=== PATIENT | female | born 1990 | race Caucasian/White ===

== ENCOUNTER 2019-01-15 20:04 | Emergency (ER) | payer SELFPAY ==
[2019-01-15] MEDS ORDERED: ATIVAN IM ONE (20:21)
[2019-01-15] MEDS ORDERED: HALDOL IM ONE (20:21)
[2019-01-15] MEDS ORDERED: HALDOL ONE (20:24)
[2019-01-15] MEDS ORDERED: ATIVAN ONE (20:24)
--- NOTE | 2019-01-15 20:43 | Emergency Department Report ---
HPI - General Chief Complaint: Altered Mental Status Time Seen by Provider: 01/15/19 20:21 - HPI HPI: 28-year-old female presents to the emergency department by EMS from home after her boyfriend apparently called secondary to some abnormal and erratic behavior that has allegedly been going on for the past 24 hours. The patient does appear combative and aggressive. She is awake but she is cursing and yelling. Patient does appear to be confused or delusional as well. I introduced myself as the ER physician and the patient says "I know you, I one $100 from you" and then proceeds to continue cursing at ER staff. The patient has never been at our facility before and therefore, given her current condition, she is a poor historian. She did not receive anything for her symptoms in route. ED Past Medical Hx - Past Medical History Previous Medical History?: No - Surgical History Past Surgical History?: No - Social History Smoking Status: Unknown if ever smoked ED Review of Systems ROS: Stated complaint: AMS Other details as noted in HPI Comment: Unobtainable due to pts medical conditions Physical Exam - Physical Exam Vital Signs: Vital Signs 01/15/19 20:08 Temperature 98.5 F Pulse Rate 108 H Respiratory 22 Rate Blood Pressure 125/84 O2 Sat by Pulse 96 Oximetry Physical Exam: GENERAL: The patient is well-developed well-nourished. HENT: Normocephalic. Atraumatic. Patient has moist mucous membranes. EYES: Extraocular motions are intact. NECK: Supple. Trachea is midline. CHEST/LUNGS: Clear to auscultation. There is no respiratory distress noted. HEART/CARDIOVASCULAR: Regular. There is no tachycardia. There is no murmur. ABDOMEN: Abdomen is soft, nontender. Patient has normal bowel sounds. There is no abdominal distention. SKIN: Skin is warm and dry. NEURO: The patient is awake but uncooperative. Patient is currently yelling at ER staff and is not directable. MUSCULOSKELETAL: There is no tenderness or deformity. There is no limitation range of motion. There is no evidence of acute injury. PSYCH: Patient is agitated with some possible delusions. ED Course Vital Signs 01/15/19 20:08 Temperature 98.5 F Pulse Rate 108 H Respiratory 22 Rate Blood Pressure 125/84 O2 Sat by Pulse 96 Oximetry ED Medical Decision Making - Lab Data Result diagrams: 01/15/19 20:32 01/15/19 20:32 - Radiology Data Radiology results: report reviewed CT head/brain wo con INDICATION / CLINICAL INFORMATION: AMS. TECHNIQUE: Axial CT imaging of brain was obtained without contrast. Coronal and sagittal reformatted imaging obtained and reviewed. All CT scans at this location are performed using CT dose reduction for ALARA by means of automated exposure control. COMPARISON: None available. FINDINGS: No intracranial hemorrhage, mass, or midline shift is identified. No extra-axial fluid collection or suggestion of acute territorial infarct. Ventricular system and basilar cisterns are unremarkable. Visualized paranasal sinuses and mastoid air cells are grossly well aerated and clear. No calvarial abnormality. IMPRESSION: 1. Negative noncontrasted head CT scan. - Medical Decision Making This patient initially was brought in by EMS from home for some erratic behavior witnessed over the past 24 hours by her boyfriend. However there is no one at bedside so all information is through EMS. However the patient does appear ag itated, erratic and appears altered with some delusions. She is yelling and cursing and ER staff. Patient was given a dose of Haldol and Ativan to treat her psychosis and was reevaluated and showed some improvement. After this, the patient became calm and cooperative and we were able to complete her medical clearance workup. She had a CT scan of the head without contrast that does not show any bleed, shift, mass, ischemia, or any other acute process. The patient's labs were mostly unremarkable except for some hypokalemia with potassium of 3.1 that was replaced with potassium chloride, and a urine drug screen showing positive amphetamines. Given this information, it is very possible that the patient has meth-induced psychosis, but I cannot rule out some type of organic psychiatric condition. Nonetheless, the patient is a 1013 and will be seen by the psychiatric tool setter apprentice. Her vital signs are stable throughout her ED course. The patient appears medically cleared for psychiatric placement. - Differential Diagnosis substance induced psychosis, schizophrenia, bipolar disorder Critical Care Time: No Critical care attestation.: If time is entered above; I have spent that time in minutes in the direct care of this critically ill patient, excluding procedure time. ED Disposition Clinical Impression: Amphetamine abuse, Acute psychosis Disposition: DC/TX-65 PSY HOSP/PSY UNIT Is pt being admited?: No Condition: Stable Time of Disposition: 22:45
[2019-01-15 20:45] LABS: Basophils # (Auto) 0.1 K/mm3 (0.0-0.1); Basophils % (Auto) 0.9 % (0.0-1.8); Eosinophils # (Auto) 0.1 K/mm3 (0.0-0.4); Eosinophils % (Auto) 1.2 % (0.0-4.3); Hematocrit 39.3 % (30.3-42.9); Hemoglobin 13.1 gm/dl (10.1-14.3); Lymphocytes # (Auto) 1.4 K/mm3 (1.2-5.4); Lymphocytes % (Auto) 18.1 % (13.4-35.0); Mean Corpuscular HGB Conc 33 % (30-34); Mean Corpuscular Volume 80 fl (79-97); Monocytes # (Auto) 0.6 K/mm3 (0.0-0.8); Monocytes % (Auto) 7.9 % (0.0-7.3); Platelet Count 283 K/mm3 (140-440); Red Cell Distribution Width 13.3 % (13.2-15.2)
[2019-01-15 21:06] LABS: Alanine Aminotransferase 14 units/L (7-56); Albumin 5.2 g/dL (3.9-5); BUN/Creatinine Ratio 15; Blood Urea Nitrogen 9 mg/dL (7-17); Calcium 9.4 mg/dL (8.4-10.2); Hemolysis Index 3
[2019-01-15] MEDS ORDERED: K-DUR PO ONE (21:30)
--- NOTE | 2019-01-15 21:31 | Cat Scan Report ---
CT head/brain wo con INDICATION / CLINICAL INFORMATION: AMS. TECHNIQUE: Axial CT imaging of brain was obtained without contrast. Coronal and sagittal reformatted imaging obt ained and reviewed. All CT scans at this location are performed using CT dose reduction for ALARA by means of automated exposure control. COMPARISON: None available. FINDINGS: No intracranial hemorrhage, mass, or midline shift is identified. No extra-axial fluid collection or suggestion of acute territorial infarct. Ventricular system and basilar cisterns are unremarkable. Visualized paranasal sinuses and mastoid air cells are grossly well aerated and clear. No calvarial a bnormality. IMPRESSION: 1. Negative noncontrasted head CT scan. Signer Name: No White MD Signed: 01/15/2019 9:26 PM Workstation Name: [id number]
[2019-01-15 21:54] LABS: Bilirubin,Urine NEG (Negative); Blood,Urine NEG (Negative); Color,Urine Yellow (Yellow); Mucus,Urine 3+ /HPF; Urobilinogen,Urine < 2.0 mg/dL (<2.0)
[2019-01-15 22:09] LABS: Benzodiazepines Screen,Urine PRESUMPTIVE NEGATIVE; Cannabinoid Screen,Urine PRESUMPTIVE NEGATIVE; Cocaine Screen,Urine PRESUMPTIVE NEGATIVE; Methadone Screen,Urine PRESUMPTIVE NEGATIVE; Opiate Screen,Urine PRESUMPTIVE NEGATIVE
[2019-01-15 22:28] LABS: Amphetamine Screen,Urine PRESUMPTIVE POSITIVE
--- NOTE | 2019-01-16 09:23 | Consultation ---
History of Present Illness - Reason for Consult Consult date: 01/16/19 Reason for consult: Mental Health Evaluation Requesting physician: WANG ONEILL - Chief Complaint Chief complaint: "The patient will not talk" - History of Present Psychiatric Illness 28-year-old female presented to the ER for behavior behavior. Today the patient was calm, but refused to talk during the assessment. Several attempts was made to engage the patient, but was unsuccessful. Medications and Allergies Allergies Allergy/AdvReac Type Severity Reaction Status Date / Time Unable to Assess Allergy Unverified 01/15/19 20:12 Home Medications Medication Instructions Recorded Confirmed Last Taken Type Unobtainable 01/16/19 01/16/19 Unknown History Past psychiatric history - Past Medical History Past Medical History: other (Unable to obtain ) Past Surgical History: Other (Unable to obtain ) - past Psychiatric treatment and history psychiatric treatment history: Unable to obtain a psy hx and fam psy hx. - Social History Social history: other (Unable to obtain ) Mental Status Exam - Vital signs Last Vital Signs Temp 98.7 F 01/16/19 07:00 Pulse 94 H 01/16/19 07:00 Resp 18 01/16/19 07:00 BP 101/70 01/16/19 07:00 Pulse Ox 99 01/16/19 07:00 - Exam Narrative exam: Unable to complete the MSE because of the patient's condition. Results Result Diagrams: 01/15/19 20:32 01/15/19 20:32 Abnormal lab results 01/15/19 01/15/19 01/15/19 Range/Units 20:32 20:32 20:32 MCH 27 L (28-32) pg [place] % (Auto) 7.9 H (0.0-7.3) % Seg Neutrophils % 71.9 H (40.0-70.0) % Potassium 3.1 L (3.6-5.0) mmol/L Creatinine 0.6 L (0.7-1.2) mg/dL Total Protein 8.4 H (6.3-8.2) g/dL Albumin 5.2 H (3.9-5) g/dL Urine WBC (Auto) (0.0-6.0) /HPF Salicylates < 0.3 L (2.8-20.0) mg/dL Acetaminophen (10.0-30.0) ug/mL 01/15/19 01/15/19 Range/Units 20:32 Unknown MCH (28-32) pg [place] % (Auto) (0.0-7.3) % Seg Neutrophils % (40.0-70.0) % Potassium (3.6-5.0) mmol/L Creatinine (0.7-1.2) mg/dL Total Protein (6.3-8.2) g/dL Albumin (3.9-5) g/dL Urine WBC (Auto) 7.0 H (0.0-6.0) /HPF Salicylates (2.8-20.0) mg/dL Acetaminophen < 5.0 L (10.0-30.0) ug/mL All other labs normal. Assessment and Plan Assessment and plan: Impression: The patient was refused to talk during the assessment. The patient was positive for amphetamines. Recommendation/Plan: Will attempt to reassess the patient in 24 [address] Will staff with Dr Obed Yung.
--- NOTE | 2019-01-17 13:44 | Progress Note ---
Subjective - Reason for Consult Consult date: 01/17/19 Reason for consult: Psychiatry Follow-up - Chief Complaint Chief complaint: "I don't know what happened" 28-year-old female presented to the ER for bizarre behavior. Today the patient was calm, but somewhat guarded during the assessment. She stated that she do not know how she got to the ER. She acknowledged that she ingested "amphetamines" prior to coming to the ER. She stated she has a hx of amphetamine use. She was asked about her mental health overall, her answers were vague. She did state that she reside with her boyfriend. She denies SI/HI's and VH's. She asked about hearing voices, she would not answer the question. Mental Status Exam - Vital signs Last Vital Signs Temp 98.4 F 01/17/19 07:00 Pulse 76 01/17/19 07:00 Resp 18 01/17/19 07:00 BP 99/65 01/17/19 07:00 Pulse Ox 94 01/17/19 07:00 - Exam Narrative exam: MSE: Appearance: calm Behavior: regular eye contact Speech: regular rate and tone Mood: "okay" Affect: flat Thought Process: circumstantial Thought Content: denies SI/HI's and AVH's Motor Activity: ambulatory Cognition: A/O x3 Insight: variable Judgment: variable Assessment and Plan Impression: Unspecified Psychosis. Substance Use DO (amphetamines). Today the p atient was calm during the assessment. DDx: Substance Induced Psychosis Recommendation/Plan: Reevaluate the patient's 1013 in 24 hours and gather collateral information. Dispo: Once collateral information is obtain and the patient is reassess in 24 hours, proper dispo will be determined Staffed with Dr Obed Yung.
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
--- NOTE | 2019-01-19 09:33 | Progress Note ---
Subjective - Reason for Consult Consult date: 01/19/19 Reason for consult: Psychiatry Follow-up - Chief Complaint Chief complaint: "I'm do hear something" Patient is a 28-year-old female presented to the ER for bizarre behavior. Today the patient is calm, but somewhat disorganized during the assessment. She continue to guarded when asked certain questions about her mental health. She was forth coming about trying to hurt herself by choking on "fluids" prior to coming to the ER. She would not confirm or deny AH's. The patient appears to be responding to some type of stimuli. She denies SI/HI's and AVH's. Collateral information could not obtained at this time per a previous note (01/18/2019). Mental Status Exam - Vital signs Last Vital Signs Temp 98.4 F 01/19/19 07:28 Pulse 81 01/19/19 07:28 Resp 18 01/19/19 07:28 BP 90/62 01/19/19 07:28 Pulse Ox 100 01/19/19 01:08 - Exam Narrative exam: MSE: Appearance: calm Behavior: regular eye contact Speech: regular rate and tone Mood: guarded Affect: flat Thought Process: somewhat disorganized Thought Content: denies SI/HI's and VH's, responding to some type of stimuli Motor Activity: ambulatory Cognition: A/O x3 Insight: variable Judgment: variable Assessment and Plan Impression: Unspecified Psychosis. Substance Use DO (amphetamines). Today the patient was calm during the assessment. DDx: Bipolar DO with psychosis, Substance Induced Psychosis Recommendation/Plan: Continue 1013 and start Geodon 20 mg PO BID for mood/psychosis and Cogentin 0.5 mg Po BID for EPS prevention. Discussed possinle metabolic side effects with the patient reference Geodon, she verbalized understanding. Baseline Lipis panel /A1c ordered for the AM. Dispo: The patient was referred to inpatient psy services. Will staff with Dr Obed Yung.
[2019-01-19] MEDS: GEODON PO SCH ×2 (12:28→21:58)
[2019-01-19] MEDS: COGENTIN PO SCH ×2 (12:28→21:58)
[2019-01-20 07:28] LABS: Chol/HDL Ratio 2.97 %
[2019-01-20] MEDS: COGENTIN PO SCH ×2 (09:49→22:05)
[2019-01-20] MEDS: GEODON PO SCH ×2 (09:51→22:05)
--- NOTE | 2019-01-20 15:00 | Progress Note ---
Subjective - Reason for Consult Consult date: 01/20/19 Reason for consult: Psychiatry Follow-up - Chief Complaint Chief complaint: "I don't need to shower" Patient is a 28-year-old female presented to the ER for bizarre behavior. Today the patient is calm, but still disorganized during the assessment. Per collateral information from the patient's boyfriend Victorino Brady at [phone]. He stated that the patient was "bizarre" prior to her arrival to the ER. He stated that he isn't aware of the patient's overall mental health when asked. Throughout the interview, the patient was staring with a regular blank rate. She denies SI/HI's and VH's. She would not confirm or deny AH's. No indications of side effects from his medications. Mental Status Exam - Vital signs Last Vital Signs Temp 98.6 F 01/20/19 14:51 Pulse 96 H 01/20/19 14:51 Resp 16 01/20/19 14:51 BP 78/51 01/20/19 14:51 Pulse Ox 102 H 01/20/19 14:51 - Exam Narrative exam: MSE: Appearance: calm Behavior: regular eye contact Speech: regular rate and tone Mood: guarded Affect: flat Thought Process: still disorganized Thought Content: denies SI/HI's and VH's, still responding to some type of stimuli Motor Activity: ambulatory Cognition: A/O x3 Insight: limitd to variable Judgment: variable Assessment and Plan Impression: Unspecified Psychosis. Substance Use DO (amphetamines). Today the patient was calm, but still disorganized during the assessment. DDx: Bipolar DO with psychosis, Substance Induced Psychosis Recommendation/Plan: Continue 1013, Geodon 20 mg PO BID for mood/psychosis, and Cogentin 0.5 mg Po BID for EPS prevention. Discussed possinle metabolic side effects with the patient reference Miguel, she verbalized understanding. Dispo: The patient was accepted at [facility] for inpatient psy services pending transport time. Staff edwith Dr Obed Yung.
[2019-01-21 09:45] VITALS: BP 90/59
[2019-01-21] MEDS: COGENTIN PO SCH (10:00)
[2019-01-21] MEDS: GEODON PO SCH (10:00)
== END 2019-01-21 12:57 ==
LOC: EEVIPCON 20:04 → ED 20:04
DX: F23 Brief psychotic disorder (principal); F15.10 Other stimulant abuse, uncomplicated
CPT/HCPCS: 36415; 70450; 80053; 80307; 81001; 84703; 85025; 96372; 99285; J1630; J2060; 80061; 80320; 83036; G0480

== ENCOUNTER 2019-02-26 23:02 | Emergency (ER) | payer SELFPAY ==
--- NOTE | 2019-02-27 00:01 | Emergency Department Report ---
ED Psych HPI - General Chief Complaint: Psych Stated Complaint: LEXI EVVIANCA Time Seen by Provider: 02/26/19 23:17 Source: patient, EMS Mode of arrival: Ambulatory - History of Present Illness Initial Comments: 28 yo F presents to ED requesting mental health evaluation. Pt told EMS that she was having thoughts of jumping out of a plane. Pt then denied SI and HI to nurse. Pt tells me that she is feeling depressed. States she wants someone else to hurt her because she cannot hurt herself. Patient confirms suicidal ideations. Denies having a plan. Pt states she wants to go back home. When asked where she is from, pt states she is from here. Patient reports marijuana and methamphetamine use 3 days ago. Patient states she does not know her psychiatric diagnosis, but has been prescribed medications. Pt states she did not take the medications because she thought that she would get better without them. MD Complaint: suicidal ideation, feels depressed -: unknown Associated Psychiatric Symptoms: depression, suicidal ideation Quality: constant Context: recent drug abuse, not taking psychiatric Associated Symptoms: denies other symptoms Treatments Prior to Arrival: none If Self Harm: admits thoughts of - Related Data Home Medications Medication Instructions Recorded Confirmed Last Taken Unobtainable 01/16/19 02/26/19 Unknown Allergies Allergy/AdvReac Type Severity Reaction Status Date / Time No Known Allergies Allergy Verified 01/19/19 09:34 ED Review of Systems ROS: Stated complaint: LEXI EVAL Other details as noted in HPI Comment: All other systems reviewed and negative Psychiatric: depression, suicidal thoughts ED Past Medical Hx - Social History Smoking Status: Unknown if ever smoked - Medications Home Medications: Home Medications Medication Instructions Recorded Confirmed Last Taken Type Unobtainable 01/16/19 02/26/19 Unknown History ED Physical Exam - General Limitations: No Limitations General appearance: alert, in no apparent distress - Head Head exam: Present: atraumatic, normocephalic - Eye Eye exam: Present: normal appearance - ENT ENT exam: Present: mucous membranes moist - Neck Neck exam: Present: normal inspection - Respiratory Respiratory exam: Present: normal lung sounds bilaterally. Absent: respiratory distress - Cardiovascular Cardiovascular Exam: Present: regular rate, normal rhythm - GI/Abdominal GI/Abdominal exam: Absent: distended - Extremities Exam Extremities exam: Present: normal inspection - Neurological Exam Neurological exam: Present: alert, oriented X3 - Psychiatric Psychiatric exam: Present: flat affect, suicidal ideation - Skin Skin exam: Present: warm, dry, intact, normal color ED Course Vital Signs 02/26/19 02/27/19 02/27/19 23:13 02:40 09:15 Temperature 98.1 F 98.2 F 98.1 F Pulse Rate 90 82 83 Respiratory 18 18 18 Rate Blood Pressure 98/80 Blood Pressure 98/80 95/75 96/67 [Left] O2 Sat by Pulse 97 99 96 Oximetry 02/27/19 02/27/19 02/28/19 17:35 21:03 03:01 Temperature 98.4 F 98.3 F 97.9 F Pulse Rate 84 81 77 Respiratory 18 16 16 Rate Blood Pressure Blood Pressure 104/61 93/63 92/59 [Left] O2 Sat by Pulse 98 100 98 Oximetry 02/28/19 02/28/19 02/28/19 07:00 14:00 20:00 Temperature 98.0 F 98.0 F 98.1 F Pulse Rate 55 L 80 60 Respiratory 16 18 16 Rate Blood Pressure Blood Pressure 84/62 92/64 95/50 [Left] O2 Sat by Pulse 99 99 98 Oximetry 03/01/19 03/01/19 03/01/19 01:11 09:26 20:00 Temperature 97.7 F 98.4 F 98.2 F Pulse Rate 85 93 H 80 Respiratory 12 18 18 Rate Blood Pressure Blood Pressure 123/83 99/64 90/55 [Left] O2 Sat by Pulse 97 97 97 Oximetry 03/02/19 03/02/19 03/02/19 01:00 09:40 13:10 Temperature 98.2 F 98.1 F 98 F Pulse Rate 79 82 81 Respiratory 16 16 18 Rate Blood Pressure Blood Pressure 88/55 97/57 89/63 [Left] O2 Sat by Pulse 98 96 98 Oximetry 03/02/19 03/02/19 03/03/19 20:27 23:43 00:00 Temperature 98.1 F 98.3 F Pulse Rate 90 72 Respiratory 16 18 16 Rate Blood Pressure Blood Pressure 92/53 100/60 [Left] O2 Sat by Pulse 97 99 Oximetry 03/03/19 03/03/19 03/03/19 08:10 15:09 20:08 Temperature 98.2 F 97.6 F 98.3 F Pulse Rate 79 72 20 L Respiratory 16 16 20 Rate Blood Pressure Blood Pressure 101/45 87/60 107/59 [Left] O2 Sat by Pulse 97 96 100 Oximetry 03/04/19 03/04/19 03/04/19 01:00 07:00 19:23 Temperature 98.1 F 97.9 F 98.3 F Pulse Rate 89 76 84 Respiratory 20 18 16 Rate Blood Pressure Blood Pressure 105/66 101/66 85/61 [Left] O2 Sat by Pulse 100 98 98 Oximetry ED Medical Decision Making - Lab Data Result diagrams: 02/26/19 23:54 02/26/19 23:54 Critical care attestation.: If time is entered above; I have spent that time in minutes in the direct care of this critically ill patient, excluding procedure time. ED Disposition Clinical Impression: Psychosis, Suicidal ideation Disposition: DC/TX-65 PSY HOSP/PSY UNIT Is pt being admited?: No Condition: Stable Referrals: PRIMARY CARE, [Primary Care Provider] - 3-5 Days
[2019-02-27 00:06] LABS: Basophils # (Auto) 0.1 K/mm3 (0.0-0.1); Basophils % (Auto) 0.9 % (0.0-1.8); Eosinophils # (Auto) 0.1 K/mm3 (0.0-0.4); Hematocrit 41.2 % (30.3-42.9); Hemoglobin 13.7 gm/dl (10.1-14.3); Lymphocytes # (Auto) 1.7 K/mm3 (1.2-5.4); Mean Corpuscular HGB Conc 33 % (30-34); Mean Corpuscular Volume 81 fl (79-97); Monocytes # (Auto) 0.6 K/mm3 (0.0-0.8); Platelet Count 323 K/mm3 (140-440); Red Blood Count 5.08 M/mm3 (3.65-5.03); Red Cell Distribution Width 13.9 % (13.2-15.2)
[2019-02-27 00:32] LABS: Alanine Aminotransferase 18 units/L (7-56); Albumin 5.4 g/dL (3.9-5); BUN/Creatinine Ratio 10; Blood Urea Nitrogen 5 mg/dL (7-17); Calcium 10.1 mg/dL (8.4-10.2); Hemolysis Index 7
[2019-02-27 01:45] LABS: HCG Qualitative,Urine Negative (Negative)
[2019-02-27 01:50] LABS: Bilirubin,Urine NEG (Negative); Blood,Urine NEG (Negative); Color,Urine Yellow (Yellow); Protein,Urine <15 mg/dL mg/dL (Negative); RBC,Urine < 1.0 /HPF (0.0-6.0); Urobilinogen,Urine < 2.0 mg/dL (<2.0)
[2019-02-27 01:51] LABS: Benzodiazepines Screen,Urine PRESUMPTIVE NEGATIVE; Cocaine Screen,Urine PRESUMPTIVE NEGATIVE; Methadone Screen,Urine PRESUMPTIVE NEGATIVE; Opiate Screen,Urine PRESUMPTIVE NEGATIVE
[2019-02-27 02:16] LABS: Amphetamine Screen,Urine PRESUMPTIVE POSITIVE; Cannabinoid Screen,Urine PRESUMPTIVE POSITIVE
--- NOTE | 2019-02-27 09:46 | Consultation ---
History of Present Illness - Reason for Consult Consult date: 02/27/19 Reason for consult: Mental Health Evaluation Requesting physician: STEF HURST - Chief Complaint Chief complaint: 'I don't want to talk" - History of Present Psychiatric Illness 28-year-old female presented to the ER for SI's. This patient is known to me. Today the patient was calm, but refused to cooperate during the assessment. Several attempts was made to engage the patient, but was unsuccessful. The patient was seen in the ER Dec 2018 with similar presentation. Medications and Allergies Allergies Allergy/AdvReac Type Severity Reaction Status Date / Time No Known Allergies Allergy Verified 01/19/19 09:34 Home Medications Medication Instructions Recorded Confirmed Last Taken Type Unobtainable 01/16/19 02/26/19 Unknown History Past psychiatric history - Past Medical History Past Medical History: other (Unable to obtain ) Past Surgical History: Other (Unable to obtain) - past Psychiatric treatment and history psychiatric treatment history: Hx of Psychosis/Substance Abuse. Unable to obtain a fam psy hx. - Social History Social history: other (Unable to obtain ) Mental Status Exam - Vital signs Last Vital Signs Temp 98.1 F 02/27/19 09:15 Pulse 83 02/27/19 09:15 Resp 18 02/27/19 09:15 BP 96/67 02/27/19 09:15 Pulse Ox 96 02/27/19 09:15 - Exam Narrative exam: Unable to complete the MSE because of the patient refused to cooperate. Results Result Diagrams: 02/26/19 23:54 02/26/19 23:54 Abnormal lab results 02/26/19 02/26/19 02/26/19 Range/Units 00:00 23:54 23:54 RBC 5.08 H (3.65-5.03) M/mm3 MCH 27 L (28-32) pg [place] % (Auto) 8.0 H (0.0-7.3) % Chloride 94.8 L (98-107) mmol/L BUN 5 L (7-17) mg/dL Creatinine 0.5 L (0.7-1.2) mg/dL Glucose 116 H (65-100) mg/dL Total Protein 8.4 H (6.3-8.2) g/dL Albumin 5.4 H (3.9-5) g/dL Urine WBC (Auto) 17.0 H (0.0-6.0) /HPF U Epithel Cells (Auto) 22.0 H (0-13.0) /HPF Salicylates (2.8-20.0) mg/dL Acetaminophen (10.0-30.0) ug/mL 02/26/19 02/26/19 Range/Units 23:54 23:54 RBC (3.65-5.03) M/mm3 MCH (28-32) pg [place] % (Auto) (0.0-7.3) % Chloride (98-107) mmol/L BUN (7-17) mg/dL Creatinine (0.7-1.2) mg/dL Glucose (65-100) mg/dL Total Protein (6.3-8.2) g/dL Albumin (3.9-5) g/dL Urine WBC (Auto) (0.0-6.0) /HPF U Epithel Cells (Auto) (0-13.0) /HPF Salicylates < 0.3 L (2.8-20.0) mg/dL Acetaminophen < 5.0 L (10.0-30.0) ug/mL All other labs normal. Assessment and Plan Assessment and plan: Impression: The patient was refused to cooperate during the assessment. The patient was positive for amphetamines and marijuana. Recommendation/Plan: Continue 1013. Will attempt to reassess the patient in 24 hours. Dispo: The patient was referred to inpatient psy services. Will staff with Dr Obed Yung.
--- NOTE | 2019-02-28 12:34 | Progress Note ---
Subjective - Reason for Consult Consult date: 02/28/19 Reason for consult: Psychiatry Follow-up - Chief Complaint Chief complaint: "Yes" 28-year-old female presented to the ER for SI's. This patient is known to me. Today the patient was preoccupied during the assessment. She would only answer some questions, but those answers were not logical. Overall, the patient isn't a good historian at this time. Mental Status Exam - Vital signs Last Vital Signs Temp 98.0 F 02/28/19 07:00 Pulse 55 L 02/28/19 07:00 Resp 16 02/28/19 07:00 BP 84/62 02/28/19 07:00 Pulse Ox 99 02/28/19 07:00 - Exam Narrative exam: MSE: Appearance: calm Behavior: poor eye contact Speech: regular rate and low tone Mood: preoccupied Affect: congruent to mood Thought Process: unable to assess Thought Content: responding to some type of stimuli Motor Activity: lying in bed Cognition: A/O x 3 Insight: unable to assess Judgment: unable to assess Assessment and Plan Impression: Unspecified Psychosis. Substance Use DO. Cannabis use Do. Today the patient was preoccupied during the assessment. DDx: Substance Induced Psychosis Recommendation/Plan: Continue 1013 and start geodon 20 mg Po BID for psychosis and Cogentin 0.5 mg Po BID for EPS prevention. Attempted to discuss possible metabolic effects with the patient reference Geodon. Administer Geodon with food. Dispo: The patient was referred to inpatient psy services. Staffed with Dr Obed Yung.
[2019-02-28] MEDS: BENZTROPINE 0.5 MG TAB PO SCH ×2 (14:00→22:00)
[2019-02-28] MEDS: ZIPRASIDONE 20 MG CAP PO SCH ×2 (14:00→22:00)
[2019-03-01] MEDS: BENZTROPINE 0.5 MG TAB PO SCH ×2 (10:00→23:40)
[2019-03-01] MEDS: ZIPRASIDONE 20 MG CAP PO SCH ×2 (10:00→23:41)
--- NOTE | 2019-03-01 14:05 | Progress Note ---
Subjective - Reason for Consult Consult date: 03/01/19 Reason for consult: Psychiatric Follow-up Evaluation - Chief Complaint Chief complaint: "I'm okay" Patient is a 28-year-old female presented to the ER for SI's. The patient is calm and cooperative during the assessment. Thought content is impoverished. Patient appears guarded. She states, " I feel good." She reports appropriate sleep and appetite. Today the patient is less internally preoccupied during the assessment. Overall, the patient isn't a good historian at this time. She denies SI/HI's. Mental Status Exam - Vital signs Last Vital Signs Temp 98.4 F 03/01/19 09:26 Pulse 93 H 03/01/19 09:26 Resp 18 03/01/19 09:26 BP 99/64 03/01/19 09:26 Pulse Ox 97 03/01/19 09:26 - Exam Narrative exam: MSE: Appearance: calm Behavior: poor eye contact Speech: regular rate and low tone Mood: "I feel better" Affect: congruent to mood Thought Process: impoverished Thought Content: responding to some type of stimuli Motor Activity: lying in bed Cognition: A/O x 3 Insight: poor Judgment: variable Assessment and Plan Impression: Unspecified Psychosis. Substance Use DO. Cannabis use Do. Today the patient is calm and cooperative during the assessment. She continues to appear internally preoccupied. She denies SI/Hi's DDx: Substance Induced Psychosis Recommendation/Plan: 1. Continue 1013. 2. Continue Geodon 20 mg Po BID for psychosis and Cogentin 0.5 mg Po BID for EPS prevention. Attempted to discuss possible metabolic effects with the patient reference Geodon. Administer Geodon with food. Disposition: Patient accepted to [facility]. Awaiting/pending transport time. Will staff with Dr. Obed Yung.
--- NOTE | 2019-03-02 10:29 | Progress Note ---
Subjective - Reason for Consult Consult date: 03/02/19 Reason for consult: Psychiatry Follow-up - Chief Complaint Chief complaint: "Nothing is wrong with me" 28-year-old female presented to the ER for SI's. Today the patient was calm during the assessment. She would answer a few questions, possibly still responding to some type of stimuli. She was asked about her recreational drug use, she stated, "I don't do drugs." The patient was positive for amphetamines. She denies SI/HI's and AVH's. No indications of side effects from her medication. Mental Status Exam - Vital signs Last Vital Signs Temp 98.1 F 03/02/19 09:40 Pulse 82 03/02/19 09:40 Resp 16 03/02/19 09:40 BP 97/57 03/02/19 09:40 Pulse Ox 96 03/02/19 09:40 - Exam Narrative exam: MSE: Appearance: calm Behavior: poor eye contact Speech: regular rate and low tone Mood: "okay" Affect: flat Thought Process: unable to assess Thought Content: somewhat responding to some type of stimuli Motor Activity: sitting up Cognition: A/O x 3 Insight: poor Judgment: poor Assessment and Plan Impression: Unspecified Psychosis. Substance Use DO. Cannabis use Do. Today the patient was calm during the assessment. DDx: Substance Induced Psychosis Recommendation/Plan: Continue 1013 and Geodon 20 mg PO BID for psychosis and Cogentin 0.5 mg PO BID for EPS prevention. Attempted to discuss possible metabolic effects with the patient reference Geodon. Administer Geodon with food. Dispo: The patient was accepted to [facility] for inpatient psy services pending transport time. Will staff with Dr Obed Yung.
[2019-03-02] MEDS: ZIPRASIDONE 20 MG CAP PO SCH ×2 (11:15→22:05)
[2019-03-02] MEDS: BENZTROPINE 0.5 MG TAB PO SCH ×2 (11:15→22:05)
--- NOTE | 2019-03-03 09:17 | Progress Note ---
Subjective - Reason for Consult Consult date: 03/03/19 Reason for consult: Psychiatry Follow-up - Chief Complaint Chief complaint: "The patient would not cooperate" 28-year-old female presented to the ER for SI's. Today the patient was calm, but uncooperative during the assessment. Several attempts was made to engage the patient, but was unsuccessful. Mental Status Exam - Vital signs Last Vital Signs Temp 98.2 F 03/03/19 08:10 Pulse 79 03/03/19 08:10 Resp 16 03/03/19 08:10 BP 101/45 03/03/19 08:10 Pulse Ox 97 03/03/19 08:10 - Exam Narrative exam: Unable to complete the MSE because of the patient refused to cooperate. Assessment and Plan Impression: Unspecified Psychosis. Substance Use DO. Cannabis Use Do. Today the patient was calm, but uncooperative during the assessment. DDx: Substance Induced Psychosis Recommendation/Plan: Continue 1013 and Geodon 20 mg PO BID for psychosis and Cogentin 0.5 mg PO BID for EPS prevention. Attempted to discuss possible metabolic effects with the patient reference Geodon. Administer Geodon with food. Dispo: The patient was accepted to [facility] for inpatient psy services pending transport time. Will staff with Dr Obed Yung.
[2019-03-03] MEDS: BENZTROPINE 0.5 MG TAB PO SCH ×2 (10:24→22:28)
[2019-03-03] MEDS: ZIPRASIDONE 20 MG CAP PO SCH ×2 (10:25→22:28)
[2019-03-04] MEDS: ZIPRASIDONE 20 MG CAP PO SCH ×2 (10:34→22:20)
[2019-03-04] MEDS: BENZTROPINE 0.5 MG TAB PO SCH ×2 (10:34→22:20)
--- NOTE | 2019-03-04 12:16 | Consultation ---
History of Present Illness - Reason for Consult Consult date: 03/04/19 Reason for consult: Mental Health Evaluation Requesting physician: WANG ONEILL - Chief Complaint Chief complaint: " I don't want to leave" - History of Present Psychiatric Illness Nothing is wrong with me" 28-year-old female presented to the ER for SI's. Today the patient was calm during the assessment. She would answer a few questions, possibly still responding to some type of stimuli. Patient reports that she has history of biploar disorder, but has only disclosed this to her boyfriend. She reports that she has been living with two friends and she did not disclose her mental health issues and had stopped taking her meds after she broke up with her boyfriend. She reports that she does recreational drugs. She reports Meth has previously been her drug of choice, but she has not used since her last time being admitted here." The patient was positive for amphetamines. Patient reports she is not what happened at her home with friends , but she does remember telling them to call 911, because they were afraid for her, but she does not know why . She reports history of auditory hallucinations, but denies no recent voices, but staff reports her responding to internal stimuli ..She reports visual hallucinations and states they are shadows and things that are moving, but she knows they occur mostly when she is very fatigued. Mental Status Exam - Vital signs Last Vital Signs Temp 98.1 F 03/02/19 09:40 Pulse 82 03/02/19 09:40 Resp 16 03/02/19 09:40 BP 97/57 03/02/19 09:40 Pulse Ox 96 03/02/19 09:40 - Exam Narrative exam: MSE: Appearance: calm Behavior: poor eye contact Speech: regular rate and low tone Mood: anxiety and depression Affect: flat Thought Process: paranoid, Thought Content: auditory and visual hallucinations Motor Activity: sitting up Cognition: A/O x 3 Insight: poor Judgment: poor Assessment and Plan Impression: Unspecified Psychosis. Substance Use DO. Cannabis use Do. Today the patient was calm during the assessment. DDx: Substance Induced Psychosis Recommendation/Plan: Continue 1013 and Geodon 20 mg PO BID for psychosis and Cogentin 0.5 mg PO BID for EPS prevention. Attempted to discuss possible metabolic disorder effects with the patient reference Geodon. Administer Geodon with food. Patient improving Dispo: The patient was accepted to [facility] for inpatient psy services pending transport time. Will staff with Dr Obed Yung. Medications and Allergies Allergies Allergy/AdvReac Type Severity Reaction Status Date / Time No Known Allergies Allergy Verified 01/19/19 09:34 Home Medications Medication Instructions Recorded Confirmed Last Taken Type Unobtainable 01/16/19 02/26/19 Unknown History Active Meds: Active Medications Benztropine Mesylate (Cogentin) 0.5 mg PO BID [facility] Last Admin: 03/04/19 10:34 Dose: 0.5 mg Documented by: Ziprasidone (Geodon) 20 mg PO BID [facility] Last Admin: 03/04/19 10:34 Dose: 20 mg Documented by: Mental Status Exam - Vital signs Last Vital Signs Temp 97.9 F 03/04/19 07:00 Pulse 76 03/04/19 07:00 Resp 18 03/04/19 07:00 BP 101/66 03/04/19 07:00 Pulse Ox 98 03/04/19 07:00 Results Result Diagrams: 02/26/19 23:54 02/26/19 23:54 All other labs normal.
[2019-03-04 20:26] VITALS: BP 85/61
== END 2019-03-05 01:24 ==
LOC: ED 23:02 → EEVIPCON 23:02 → ED 03-05 01:24
DX: F12.10 Cannabis abuse, uncomplicated (principal); F19.10 Other psychoactive substance abuse, uncomplicated; R45.851 Suicidal ideations
CPT/HCPCS: 36415; 80053; 80307; 80320; 81001; 81025; 85025; 87086; 99285; G0480